=== PATIENT | female | born 2000 | race Caucasian/White ===

== ENCOUNTER 2021-05-08 19:18 | Emergency (ER) | payer BC ==
[~2021-05-08] VITALS: Ht 175.3 cm; Wt 86.4 kg
[2021-05-08 20:28] VITALS: BP 156/73; PULSE 89; TEMP 98.7
== END 2021-05-08 20:28 | disposition home or self-care (01) ==
LOC: COL.ER 19:18
DX: S61.211A Laceration without foreign body of left index finger without damage to nail, initial encounter (principal); Z23 Encounter for immunization; W27.2XXA Contact with scissors, initial encounter